=== PATIENT | female | born 1995 | race Hispanic/Latino ===

== ENCOUNTER 2025-03-01 22:19 | Inpatient (IN) | payer MEDICAID, SELFPAY ==
--- NOTE | 2025-03-01 23:05 | P.HPOB_ITS ---
OB HPI Date/Time Date of admission: 03/01/25 Date Patient Seen: 03/01/25 Time Patient Seen: 23:05 History of Present Condition Chief complaint: labor QUIN Calculator 2 Estimated Delivery Date Method Current WG Current Estimate 02/19/25 Manual 41w 4d : 3 Para: 2 Narrative: 29yo at 41+3wks by patient reported due date, presenting in active labor. Limited care in this . [place] Citizen speaking, limited history collected via deaf interpreter. She reports a history of section in her first , then a vaginal delivery with her second . care: none Dating criteria OB: based on 1st trimester US only (per patient) Preadmission Labs Last OB Lab Results: 2 Blood Type O Positive 03/01/25 22:40 Antibody Screen Negative 03/01/25 22:40 Hct 34.0 % (36-46) L 03/01/25 22:40 Hgb 11.1 g/dL (12.0-16.0) L 03/01/25 22:40 Hep Bs Antigen Negative s/c (NEGATIVE) 03/01/25 22:40 Hepatitis C Antibody Negative s/c (NEGATIVE) 03/01/25 22:40 Rubella Antibody 74.1 IU/mL (>15) 03/01/25 22:40 Group B Strep (PCR) Neg for grp b strep 03/01/25 23:00 -: Chlamydia screen: unknown, Gonorrhea screen: unknown and Urine: unknown External Labs -: Urine: unknown Evaluation Evaluation Baseline heart rate: 140 Variability: Moderate (11-25) monitor accelerations: Present Monitor Decelerations: Absent Contraction Frequency (minutes): 3 Status: Category l Dilation (cm): 9 Effacement (%): 100 station: 0 Position of cervix: mid Consistency: soft Meds Home Medications and Allergies Home Medications Medication Instructions Recorded Confirmed Type ascorbic acid (vitamin C) 03/01/25 History Allergies Allergy/AdvReac Type Severity Reaction Status Date / Time No Known Drug Allergies Allergy Verified 03/01/25 23:02 Review of Systems Review of Systems ROS: Yes All systems reviewed with the patient and are negative except as otherwise documented OB Exam Vital signs Blood Pressure: 120/65 Pulse Rate: 85 Temperature: 97.7 F HENMT Head: normal to inspection Resp Effort & Inspection: normal respiratory effort and able to speak in complete sentences Extremities Lower extremity: Yes normal to inspection GI Palpation: Yes soft and No tender External Female Exam: Yes normal external appearance Presentation: vertex Estimated Weight (lbs): 8 Amniotic Fluid: meconium Objective Labs 03/01/25 22:40 Assessment and Plan Assessment and Plan Assessment and Plan narrative: 29yo at 41+3wks admitted in active labor. Due to her advanced cervical dilation, history of a prior vaginal delivery, and category I tracing, will hold on proceeding with repeat at this time. AROM performed productive of meconium-stained fluid. -CBC, T&S, infectious labs on admission -continuous EFM -epidural PRN -GBS unknown with no risk factors at term, thus ppx not indicated at this time -PPH risk low -VTE risk low, SCDs with epidural if placed -anticipate Time-Based Coding :: [30min] spent with patient and on the chart (including review of chart, obtaining history, exam, reviewing outside data, placing orders, documenting exam and treatment plan, and counseling patient) on [03/01/25].
[2025-03-01 23:18] LABS: Add Manual Diff / Slide Review NO; Basophils Absolute Auto 0 /uL (0-100); Basophils Percent Auto 0.1 % (0-2); Eosinophils Absolute Auto 0 /uL (0-450); Eosinophils Percent Auto 0.1 % (2-4); Hemoglobin 11.1 g/dL (12.0-16.0); Lymphocytes Absolute Auto 2000 /uL (1100-4500); Lymphocytes Percent Auto 17.1 % (25-40); Mean Corpuscular HGB Conc 32.6 % (30-36); Mean Corpuscular Hemoglobin 25.8 PG (26-34); Mean Corpuscular Volume 79.2 fL (80-100); Monocytes Absolute Auto 500 /uL (0-900); Monocytes Percent Auto 4.3 % (3-14); Neutrophils Absolute Auto 9000 /uL (1500-7000); Neutrophils Percent Auto 78.4 % (50-75); Platelet Count 216 X10^3/uL (150-400); Red Blood Cell Count 4.29 X10^6/uL (4.0-5.2); White Blood Cell Count 11.5 X10^3/uL (4.5-11.0)
[2025-03-01 23:26] LABS: Anisocytosis 2+; Microcytosis 1+
[2025-03-01 23:28] VITALS: BP 120/65; PULSE 85; TEMP 36.5
[2025-03-02] LABS: Hepatitis B Surface Antigen NEGATIVE s/c (NEGATIVE); Rubella Antibody IgG 74.1 IU/mL (>15)
[2025-03-02 00:12] LABS: Strep Grp B PCR NEG for Grp B Strep
[2025-03-02 00:31] LABS: HIV 1 & 2 Ab/Ag 4th Gen Combo NEGATIVE (NEGATIVE); Hep C Virus Ab w/Reflex Quant NEGATIVE s/c (NEGATIVE)
[2025-03-02 00:59] VITALS: BP 120/65
--- NOTE | 2025-03-02 01:09 | PM.OBPRVD ---
Events: No Care Labor & Delivery Delivery date: 03/02/25 Delivery Time: 00:39 Intrapartal Events: None Delivery augmentation: rupture of membranes Delivery monitor: external FHT and external uterine Route of delivery: L&D Laceration Description: Perineal - 2nd Degree Delivery repair: vicryl Estimated blood loss (mL): 150 Anesthesia Type: Local Complications: none Narrative: The patient progressed to C/C/0. After approximately 30min of maternal pushing efforts, the delivered in OA position and restituted ROT. The anterior shoulder delivered with gentle downward pressure. The posterior shoulder and rest of body delivered with ease. The cord was doubly clamped and cut after > 60sec delay with the placed on maternal abdomen. The placenta delivered spontaneously and was intact with a 3-vessel cord. The fundus was noted to be firm with bimanual massage and pitocin. Inspection of the cervix, vagina, and perineum was notable for a 2nd degree perineal laceration. Repair was performed using 3-0 Vicryl in a running, unlocked fashion. Skin was reapproximated in a running, subcuticular fashion. At the end of the repair, all tissues noted to be hemostatic. All sponges were removed from the vagina. The patient tolerated delivery well and remained in the labor room with the infant at the bedside. [place] Baby 1: gender: Male Presentation: vertex Placenta delivery description: Spontaneous Cord Vessel Description: 3 Vessels score (1 min): 7 score (5 min): 9 weight: 7 lb 4.016 oz Plan for aftercare: Routine care
[2025-03-02] MEDS: DERMOPLAST SPRAY 20% 60 ML 1 SPRAY TOP (03:29)
[2025-03-02] MEDS: LANOLIN OINT 7 GM 1 APPLIC TOP (03:29)
[2025-03-02] MEDS: WITCH HAZEL/GLYCERIN PADS 1 EACH TOP (03:30)
--- NOTE | 2025-03-02 07:55 | PM.OBPN.1 ---
Subjective - OB Subjective Patient comments: no complaints and pain well controlled [place] baby status: doing well [place] feeding status: exclusively breast feeding Narrative: PPD0 s/p , doing well Date Patient Seen: 03/02/25 Time Patient Seen: 07:45 Exam Vital Signs (past 8 hours): - 03/02/25 00:59 Blood Pressure 120/65 Const General: cooperative and healthy appearing Nutritional Appearance: average body habitus Orientation: alert, awake and oriented x3 Limitations: mental status not altered Resp Effort & Inspection: normal respiratory effort and able to speak in complete sentences Cardio Pulses: normal peripheral pulses GI Other: fundus firm << umb Other: deferred Skin General: no rashes or lesions noted Neuro General: patient alert, patient awake and patient oriented x3 Extrem General: normal to inspection Psych Mental Status: mental status grossly normal Judgment: judgment good Objective Labs 03/01/25 22:40 Labs: Laboratory Results - last 24 hr 03/01/25 03/01/25 22:40 23:00 WBC 11.5 H RBC 4.29 Hgb 11.1 L Hct 34.0 L MCV 79.2 L MCH 25.8 L MCHC 32.6 RDW 22.0 H Plt Count 216 Neut % (Auto) 78.4 H Lymph % (Auto) 17.1 L [place] % (Auto) 4.3 Eos % (Auto) 0.1 L Baso % (Auto) 0.1 Neut # (Auto) 9000 H Lymph # (Auto) 2000 [place] # (Auto) 500 Eos # (Auto) 0 Baso # (Auto) 0 RBC Morphology See below Anisocytosis 2+ H Microcytosis 1+ H Hep Bs Antigen Negative Hepatitis C Antibody Negative HIV 1&2 Ab/P24 Ag 4thGn Negative Rubella Antibody 74.1 Group B Strep (PCR) Neg for grp b strep Blood Type O Positive Antibody Screen Negative Assessment & Plan Plan day: 0 plan OB: routine care Comments: routine care SW consult as indicated anticipate dc to home in AM Time-Based Coding :: [TOTAL MINUTES] spent with patient and on the chart (including review of chart, obtaining history, exam, reviewing outside data, placing orders, documenting exam and treatment plan, and counseling patient) on [DATE].
[2025-03-02] MEDS: DOCUSATE 100 MG CAPSULE PO (09:22)
[2025-03-02] MEDS: PRENATAL VIT,CALC/IRON/FOLIC 1 TABLET 1 TAB PO (09:23)
[2025-03-03] MEDS: ACETAMINOPHEN 325 MG TABLET 650 MG PO (08:20)
[2025-03-03] MEDS: DOCUSATE 100 MG CAPSULE PO (08:21)
[2025-03-03] MEDS: PRENATAL VIT,CALC/IRON/FOLIC 1 TABLET 1 TAB PO (08:21)
[2025-03-03 10:27] VITALS: BP 98/64; PULSE 80; RESP 16; TEMP 36.7
== END 2025-03-03 15:59 | disposition home or self-care (01) | DRG 807 ==
PROVIDERS: Admitting Provider Student in an Organized Health Care Education/Training Program; Referring Provider Student in an Organized Health Care Education/Training Program; Visit Provider Student in an Organized Health Care Education/Training Program
DX: O48.0 Post-term pregnancy (principal); Z37.0 Single live birth; O70.1 Second degree perineal laceration during delivery; Z3A.41 41 weeks gestation of pregnancy
CPT/HCPCS: 36415; 59050; 59409; 85025; 86592; 86762; 86803; 86850; 86900; 86901; 87081; 87340; 87389; 87653; 99222; G0379